=== PATIENT | male | born 1980 | race Caucasian/White ===

== ENCOUNTER → 2019-11-21 09:00 | Outpatient (CLI) | payer OTHER, SELFPAY ==
[2019-11-21 10:32] LABS: AST(SGOT) 43 U/L (15-37); Alanine Aminotransfer ALT/SGPT 80 U/L (16-61); Albumin, Serum 4.2 g/dL (3.2-5.0); Alkaline Phosphatase 108 U/L (45-117); Anion Gap 7 (5-15); BUN 17 mg/dL (7-18); BUN/Creat Ratio 16.7 RATIO (10-20); Calcium,Total 9.3 mg/dL (8.5-10.1); Chloride 103 mmol/L (98-107); Cholesterol 257 mg/dL (200); Creatinine, Serum 1.02 mg/dL (0.70-1.30); EST Glomerular Filtration Rate 87 mL/min (>60); Est Glom Filt Rate - Afr Amer 105 mL/min (>60); Globulin 4.1 g/dL (2.2-4.2); Glucose 93 mg/dL (74-106); High Density Lipoprotein 40 mg/dL; PSA,Total - Annual Screen 0.65 ng/mL (0.00-4.00); Potassium 3.8 mmol/L (3.5-5.1); Protein, Total 8.3 g/dL (6.4-8.2); Sodium Level 139 mmol/L (136-145); Triglycerides 182 mg/dL; Very Low Density Lipoprotein 36 mg/dL (5-40)
[2019-11-21 10:37] LABS: Amphetamine Urine VISTA NEGATIVE (<1000 ng/mL); Barbiturate Urine VISTA NEGATIVE (< 200 ng/mL); Benzodiazepine Urine VISTA NEGATIVE (< 200 ng/mL); Cocaine Urine VISTA NEGATIVE (< 300 ng/mL); Ecstacy Urine VISTA NEGATIVE (< 500 ng/mL); Methadone Urine VISTA NEGATIVE (< 300 ng/mL); PCP Urine VISTA NEGATIVE (< 25 ng/mL); THC Urine VISTA NEGATIVE (< 50 ng/mL); Vista UDS pH Range 5
== END ==
PROVIDERS: PCP Family Medicine; Referring Provider Family Medicine; Visit Provider Family Medicine
DX: E34.9 Endocrine disorder, unspecified (principal)
CPT/HCPCS: 36415; 80053; 80061; 80307; 84153; 84403; G0103

== ENCOUNTER → 2021-09-08 10:56 | Outpatient (CLI) | payer OTHER, SELFPAY ==
[2021-09-08 12:29] LABS: Hematocrit 46.8 % (40-54); Hemoglobin 16.3 g/dL (13.0-16.5); Mean Corp Hgb Conc 34.8 g/dL (32-36); Mean Corpuscular Hgb 29.9 pg (27.0-32.0); Mean Corpuscular Volume 85.7 fL (80-94); Mean Platelet Vol. 9.1 fl (6.2-12.0); Platelet Count 287 K/mm3 (150-450); RBC Distribution Width CV 12.7 % (11.6-14.6); RBC Distribution Width SD 39.4 fl (35.1-43.9); Red Blood Count 5.46 M/mm3 (4.6-6.2); White Blood Count 4.4 K/mm3 (4.4-11.0)
[2021-09-08 12:46] LABS: Hemoglobin A1c 5.1 % (3.8-5.6)
[2021-09-08 12:50] LABS: Homocysteine 8.2 umol/L (3.2-10.7)
[2021-09-08 13:23] LABS: Progesterone Level 0.31 ng/mL (See Comment); T3 Total - Triiodothyronine 1.03 ng/mL (0.6-1.81); Vitamin B12 583 pg/mL (211-911); Vitamin D,25 Hydroxy 19.9 ng/mL
[2021-09-08 14:08] LABS: AST(SGOT) 31 U/L (15-37); Alanine Aminotransfer ALT/SGPT 59 U/L (16-61); Albumin, Serum 4.3 g/dL (3.2-5.0); Alkaline Phosphatase 103 U/L (45-117); Anion Gap 7 (5-15); BUN 15 mg/dL (7-18); BUN/Creat Ratio 15.7 RATIO (10-20); CRP, High Sensitivity Cardiac 0.89 mg/L; Calcium,Total 9.4 mg/dL (8.5-10.1); Chloride 101 mmol/L (98-107); Cholesterol 262 mg/dL (200); Creatinine, Serum 0.95 mg/dL (0.70-1.30); EST Glomerular Filtration Rate 93 mL/min (>60); Est Glom Filt Rate - Afr Amer 113 mL/min (>60); Follicle Stimulating Hormone 4.1 mIU/mL; Globulin 4.2 g/dL (2.2-4.2); Glucose 103 mg/dL (74-106); High Density Lipoprotein 39 mg/dL; Iron 101 ug/dL (65-175); Luteinizing Hormone 3.2 mIU/mL; Magnesium 2.2 mg/dL (1.6-2.6); PSA,Total - Annual Screen 0.91 ng/mL (0.00-4.00); Potassium 3.9 mmol/L (3.5-5.1); Prolactin 5.1 ng/mL; Protein, Total 8.5 g/dL (6.4-8.2); Sodium Level 137 mmol/L (136-145); T4 Free Direct 0.71 ng/dL (0.76-1.46); T4 Total, Thyroxin 4.1 ug/dL (4.5-12.1); Thyroid Stim Hormone (TSH) 2.56 uIU/mL (0.358-3.74); Triglycerides 290 mg/dL; Very Low Density Lipoprotein 58 mg/dL (5-40)
[2021-09-13 17:06] LABS: Insulin Like Growth Factor 129 ng/mL (90-278); Testosterone, % Free 4.19 % (1.50-4.20); Testosterone, Free 16.34 ng/dL (5.00-21.00)
[2021-09-14 14:14] LABS: Sex Hormone-binding Globulin 19.7 nmol/L (16.5-55.9); Testosterone, Total 390 ng/dL (264-916)
== END ==
PROVIDERS: PCP Family Medicine; Referring Provider Nurse Practitioner Family; Visit Provider Nurse Practitioner Family
DX: R53.82 Chronic fatigue, unspecified (principal); M62.81 Muscle weakness (generalized)
CPT/HCPCS: 36415; 80053; 80061; 82306; 82533; 82607; 82627; 82670; 82746; 83001; 83002; 83036; 83090; 83540; 83735; 84144; 84146; 84153; 84270; 84305; 84402; 84403; 84436; 84439; 84443; 84480; 85027; 86141; 82626; G0103

== ENCOUNTER 2021-12-11 10:50 | Outpatient (CLI) | payer OTHER, SELFPAY ==
[2021-12-11 12:20] LABS: Hematocrit 53.2 % (40-54); Mean Corp Hgb Conc 33.8 g/dL (32-36); Mean Corpuscular Hgb 29.5 pg (27.0-32.0); Mean Corpuscular Volume 87.1 fL (80-94); Mean Platelet Vol. 9.6 fl (6.2-12.0); Platelet Count 277 K/mm3 (150-450); RBC Distribution Width CV 12.6 % (11.6-14.6); RBC Distribution Width SD 40.2 fl (35.1-43.9); Red Blood Count 6.11 M/mm3 (4.6-6.2); White Blood Count 4.7 K/mm3 (4.4-11.0)
[2021-12-11 12:28] LABS: Scan Indicated on CBC? Y/N NO
[2021-12-11 12:42] LABS: Homocysteine 6.9 umol/L (3.2-10.7)
[2021-12-11 13:11] LABS: Progesterone Level 0.46 ng/mL (See Comment); T3 Total - Triiodothyronine 0.93 ng/mL (0.6-1.81); Vitamin B12 663 pg/mL (211-911); Vitamin D,25 Hydroxy 18.2 ng/mL
[2021-12-11 13:13] LABS: CRP, High Sensitivity Cardiac 0.74 mg/L; Cholesterol 226 mg/dL (200); Estradiol 86.1 pg/mL; Follicle Stimulating Hormone < 0.2 mIU/mL; High Density Lipoprotein 35 mg/dL; Iron 110 ug/dL (65-175); Luteinizing Hormone < 0.2 mIU/mL; Magnesium 2.3 mg/dL (1.6-2.6); PSA,Total - Annual Screen 0.75 ng/mL (0.00-4.00); Prolactin 5.8 ng/mL; T4 Free Direct 0.65 ng/dL (0.76-1.46); T4 Total, Thyroxin 3.8 ug/dL (4.5-12.1); Thyroid Stim Hormone (TSH) 2.57 uIU/mL (0.358-3.74); Triglycerides 153 mg/dL; Very Low Density Lipoprotein 31 mg/dL (5-40)
[2021-12-11 14:32] LABS: Hemoglobin A1c 4.9 % (3.8-5.6)
[2021-12-12 13:50] LABS: ALB/GLOB Ratio 1.1 RATIO (0.9-2.4); AST(SGOT) 27 U/L (15-37); Alanine Aminotransfer ALT/SGPT 45 U/L (16-61); Albumin, Serum 4.2 g/dL (3.2-5.0); Alkaline Phosphatase 92 U/L (45-117); Anion Gap 5 (5-15); BUN 10 mg/dL (7-18); BUN/Creat Ratio 9.3 RATIO (10-20); Calcium,Total 9.1 mg/dL (8.5-10.1); Chloride 104 mmol/L (98-107); Creatinine, Serum 1.07 mg/dL (0.70-1.30); EST Glomerular Filtration Rate 81 mL/min (>60); Est Glom Filt Rate - Afr Amer 98 mL/min (>60); Globulin 3.9 g/dL (2.2-4.2); Glucose 89 mg/dL (74-106); Potassium 4.4 mmol/L (3.5-5.1); Protein, Total 8.1 g/dL (6.4-8.2); Sodium Level 137 mmol/L (136-145)
[2021-12-14 12:50] LABS: Pathologist Review Reviewed
[2021-12-14 13:07] LABS: Insulin Like Growth Factor 173 ng/mL (90-278); Testosterone, % Free 3.56 % (1.50-4.20)
[2021-12-14 14:33] LABS: Testosterone, Total 1486 ng/dL (264-916)
== END 2021-12-11 23:59 | disposition home or self-care (01) ==
PROVIDERS: PCP Family Medicine; Referring Provider Nurse Practitioner Family; Visit Provider Nurse Practitioner Family
DX: E29.1 Testicular hypofunction (principal)
CPT/HCPCS: 36415; 80053; 80061; 82306; 82533; 82607; 82627; 82670; 82746; 83001; 83002; 83036; 83090; 83540; 83735; 84144; 84146; 84153; 84270; 84305; 84402; 84403; 84436; 84439; 84443; 84480; 85027; 86141; 82626; G0103

== ENCOUNTER → 2023-01-14 | Outpatient (CLI) | payer OTHER, SELFPAY ==
[2023-01-14 12:42] LABS: Hemoglobin 16.3 g/dL (13.0-16.5); Mean Corp Hgb Conc 34.7 g/dL (32-36); Mean Corpuscular Hgb 30.7 pg (27.0-32.0); Mean Corpuscular Volume 88.5 fL (80-94); Mean Platelet Vol. 9.5 fl (6.2-12.0); Platelet Count 283 K/mm3 (150-450); RBC Distribution Width CV 12.7 % (11.6-14.6); RBC Distribution Width SD 41.5 fl (35.1-43.9); Red Blood Count 5.31 M/mm3 (4.6-6.2); White Blood Count 4.4 K/mm3 (4.4-11.0)
[2023-01-14 13:15] LABS: Hemoglobin A1c 5.1 % (3.8-5.6)
[2023-01-14 13:17] LABS: T3 Total - Triiodothyronine 0.83 ng/mL (0.6-1.81); Vitamin B12 575 pg/mL (211-911); Vitamin D,25 Hydroxy 24.6 ng/mL
[2023-01-14 13:29] LABS: Homocysteine 7.5 umol/L (3.2-10.7)
[2023-01-14 13:32] LABS: AST(SGOT) 24 U/L (15-37); Alanine Aminotransfer ALT/SGPT 45 U/L (16-61); Albumin, Serum 4.1 g/dL (3.2-5.0); Alkaline Phosphatase 91 U/L (45-117); Anion Gap 7 (5-15); BUN 18 mg/dL (7-18); BUN/Creat Ratio 18.1 RATIO (10-20); CRP, High Sensitivity Cardiac 0.91 mg/L; Calcium,Total 9.5 mg/dL (8.5-10.1); Chloride 101 mmol/L (98-107); Cholesterol 236 mg/dL (200); EST Glomerular Filtration Rate 88 mL/min (>60); Est Glom Filt Rate - Afr Amer 106 mL/min (>60); Estradiol 25.4 pg/mL; Glucose 90 mg/dL (74-106); High Density Lipoprotein 38 mg/dL; Iron 100 ug/dL (65-175); Magnesium 2.3 mg/dL (1.6-2.6); PSA,Total - Annual Screen 0.63 ng/mL (0.00-4.00); Potassium 4.1 mmol/L (3.5-5.1); Prolactin 4.2 ng/mL; Protein, Total 8.1 g/dL (6.4-8.2); Sodium Level 137 mmol/L (136-145); T4 Free Direct 0.66 ng/dL (0.76-1.46); T4 Total, Thyroxin 5.1 ug/dL (4.5-12.1); Thyroid Stim Hormone (TSH) 3.03 uIU/mL (0.358-3.74); Triglycerides 266 mg/dL; Very Low Density Lipoprotein 53 mg/dL (5-40)
[2023-01-14 14:10] LABS: Progesterone Level < 0.21 ng/mL (See Comment)
[2023-01-20 12:09] LABS: Insulin Like Growth Factor 122 ng/mL (84-270); Sex Hormone-binding Globulin 16.4 nmol/L (16.5-55.9); Testosterone, % Free 2.14 % (1.50-4.20); Testosterone, Free 5.67 ng/dL (5.00-21.00); Testosterone, Total 265 ng/dL (264-916)
== END | disposition home or self-care (01) ==
LOC: MTLAB 10:25
PROVIDERS: PCP Family Medicine; Referring Provider Nurse Practitioner Family; Visit Provider Nurse Practitioner Family
DX: R53.82 Chronic fatigue, unspecified (principal); M62.81 Muscle weakness (generalized); R68.82 Decreased libido
CPT/HCPCS: 36415; 80053; 80061; 82306; 82533; 82607; 82627; 82670; 82746; 83001; 83002; 83036; 83090; 83540; 83735; 84144; 84146; 84153; 84270; 84305; 84402; 84403; 84436; 84439; 84443; 84480; 85027; 86141; 82626; G0103